=== PATIENT | male | born 1975 | race Caucasian/White ===

== ENCOUNTER 2021-01-07 21:21 | Emergency (ER) | payer OTHER ==
[~2021-01-07] VITALS: Ht 177.8 cm; Wt 64.0 kg
[2021-01-07 21:21] VITALS: BP 166/120
== END 2021-01-07 21:50 | disposition left against medical advice (07) ==
LOC: ER 21:21
DX: N48.89 Other specified disorders of penis (principal); Z53.21 Procedure and treatment not carried out due to patient leaving prior to being seen by health care provider